=== PATIENT | male | born 1970 | race Caucasian/White ===

== ENCOUNTER 2022-05-03 18:28 | Outpatient (CLI) | payer SELFPAY | END 2022-05-03 18:29 | disposition home or self-care (01) | LOC: AMB 06-25 14:53 | PROVIDERS: Visit Provider Family Medicine | DX: R55 Syncope and collapse (principal) | CPT/HCPCS: A0425; A0427 ==

== ENCOUNTER 2022-05-03 19:12 | Emergency (ER) | payer SELFPAY ==
[2022-05-03] VITALS (13 sets, daily range): BP systolic 114–162; BP diastolic 67–102; PULSE 70–88; RESP 16; TEMP 36.8; O2SAT 97–100
--- NOTE | 2022-05-03 19:25 | CRLHL7_ITS ---
For Patients: As a result of the Century Cures Act, medical imaging exams and procedure reports are released immediately into your electronic medical record. You may view this report before your referring provider. If you have questions, please contact your health care provider. INDICATION: Syncope. TECHNIQUE: Chest 1 views. COMPARISON: None. FINDINGS: Cardiovasculature and mediastinum: Heart size and vasculature are normal in caliber and appearance. Lungs and pleural spaces: Lungs are clear. No sign of infiltrate or mass. No sign of pleural effusion. No pneumothorax. Bones and soft tissues: No significant findings. IMPRESSION: No acute or significant findings. Dictated by All Anthony MD @ 05/03/2022 8:17:22 PM (Electronically Signed)
--- NOTE | 2022-05-03 19:28 | ED_ITS ---
HPI - General Adult General Time Seen by Provider: 19:28 Date Seen: 05/03/22 Chief complaint: Syncope/Fainted Stated complaint: Syncopal episode Time Seen by Provider: 05/03/22 19:16 Source: patient Mode of arrival: EMS Limitations: no limitations History of Present Illness HPI narrative: Patient is a 51-year-old male who was picked up at the [employer] [place] stop. He was coming back from a friend's house from [place]. He was living near [place] in the past, he has been more recently homeless, living out of his truck, his truck has had break issues. He reports he was stopping a gas at the [employer], was trying to get water he had a syncopal episode against a pop machine, was revived by bystanders did not injure himself. He feels well now, except he st ates he is feeling ?dry? and has not eaten anything or drank much over the last week because he has had no access to food. Patient reports he is generally fairly healthy, denies home medications, has not seen a doctor recently. Specifically he denies chest pain, breathing difficulty, headache, neck pain, fevers chills or rigors, skin rashes, COVID symptoms. Related Data Home Medications Medication Instructions Recorded Confirmed No Known Home Medications 05/03/22 05/03/22 Allergies Allergy/AdvReac Type Severity Reaction Status Date / Time No Known Drug Allergies Allergy Verified 05/03/22 19:18 Review of Systems Status of ROS: Reports: 10 or more systems reviewed and unremarkable except as noted in History and below [facility] Medical History (Updated 05/03/22 @ 23:51 by Keith Appiah MD) No significant past medical history Surgical History (Updated 05/03/22 @ 19:47 by Alix Gusman RN) No significant past surgical history Social History Smoking Status: Current some day smoker What tobacco products do you use: cigarettes Do you use any of these nicotine containing products: None How often do you have a drink containing alcohol: never AUDIT-C Alcohol total score: 0 Non-prescribed substance use: denies use Exam Narrative: Exam Narrative: Objective: Patient has vital signs that are pretty unremarkable Is alert orient x3, appears fairly unkempt Very poor dentition, no facial asymmetry, no scleral icterus Neck is supple Chest clear Heart rate and rhythm regular 2/6 systolic murmur Abdomen benign soft Extremities are no edema neurologic nonfocal upper lower extremities Skin warm and dry in the periphery Mouth is very dry Const: Vital Signs, click to edit/add: Vital Signs - 24 hr 05/03/22 19:16 05/03/22 19:22 05/03/22 19:25 Temperature 98.2 F Pulse Rate [Left P ulse Oximeter] 83 Respiratory Rate 16 Blood Pressure [Le ft Upper Arm] 162/102 H 114/93 H Pulse Oximetry 99 99 Oxygen Delivery Me thod Room Air 05/03/22 19:30 05/03/22 19:50 05/03/22 20:15 Temperature Pulse Rate [Left P ulse Oximeter] 85 80 77 Respiratory Rate 16 16 16 Blood Pressure [Le ft Upper Arm] 120/81 127/94 H 137/87 Pulse Oximetry 99 99 99 Oxygen Delivery Me thod Room Air Room Air Room Air 05/03/22 20:30 Temperature Pulse Rate [Left P ulse Oximeter] 88 Respiratory Rate 16 Blood Pressure [Le ft Upper Arm] 125/88 Pulse Oximetry 99 Oxygen Delivery Me thod Room Air Course Vital Signs Vital signs: Initial Vital Signs Temperature 98.2 F 05/03/22 19:16 Temperature Source Temporal Artery Scan 05/03/22 19:16 Pulse Rate 83 05/03/22 19:16 Pulse Rhythm 05/03/22 19:16 Respiratory Rate 16 05/03/22 19:16 Blood Pressure 162/102 H 05/03/22 19:16 Blood Pressure Mean 122 05/03/22 19:16 Blood Pressure Position Sitting 05/03/22 19:16 Pulse Oximetry 99 05/03/22 19:16 Oxygen Delivery Method 05/03/22 19:16 Vital Signs Temperature 98.2 F 05/03/22 19:16 Pulse Rate 83 05/03/22 19:16 Respiratory Rate 16 05/03/22 19:16 Blood Pressure 162/102 H 05/03/22 19:16 Pulse Oximetry 99 05/03/22 19:16 Oxygen Delivery Method 05/03/22 19:16 Temperature 98.2 F 05/03/22 19:16 Pulse Rate 74 05/03/22 21:32 Respiratory Rate 16 05/03/22 20:30 Blood Pressure 100/64 05/04/22 00:01 Pulse Oximetry 98 05/04/22 00:01 Oxygen Delivery Method 05/03/22 20:30 Medical Decision Making MDM Narrative Medical decision making narrative: Patient has history of poor p.o. intake over the week, he appears dehydrated. Certainly this could have caused a vasovagal spell. He appears to be clinically well at this time. I do believe some checkups would be appropriate including a chest x-ray, a COVID test, electrolytes, CBC, urinalysis. Will hydrate him with a L of fluid will get him food his labs and other issues checked out well law enforcement to get him to a long-term other living arrangement. Please see add endum. Addendum: The patient's EKG by my read shows sinus rhythm PACs she got some interventricular conduction delay there is some artifact present, some T-wave inversion anteriorly I do not have an old EKG EKG for comparison. This is by my read. He is able to eat he has gotten IV fluid and a banana bag his chest x-ray looks unremarkable his D-dimer is negative COVID is negative troponin is 0.01 alcohol is negative lactate was 2.5 proBNP is 68 magnesium was low 1.4 I think giving him some magnesium IV would be appropriate. His potassium was low and also give him potassium bicarb 25 mEq orally his white count was 7970 and hemoglobin 19 is sodium was 134 glucose 121 alcohol is negative. Will repeat his EKG replenish his magnesium and potassium, rehydrate, long to eat. Recheck his EKG and troponin. Addendum: The patient's EKG by my read shows looks largely unchanged from prior, he does have some interventricular conduction delay, and some widened QRS he has not had any chest pain, neck pain, arm pain symptoms. His troponins are negative x2. I giving him IV magnesium and potassium for replacement. Will continue to monitor he he has eaten and been able to drink fluids. He is asymptomatic. Has a some EKG changes I do not have an old 1 for comparison, he will need followup as clinic patient, light activity recommended, aspirin daily, will I think for completeness recheck another troponin at 11:00 p.m. and EKG. Lab Data Labs: Lab Results 05/03/22 05/03/22 05/03/22 Range/Units 19:26 19:55 19:55 WBC 7.97 (4.50-11.00) K/uL RBC 6.36 H (4.30-5.90) m/uL Hgb 19.2 H (13.5-17.5) gm/dL Hct 53.5 H (37.0-53.0) % MCV 84 (80-100) fL MCH 30 (26-34) pg MCHC 36 (32-36) gm/dL RDW Coeff of Felecia 12.9 (11.5-15.5) % Plt Count 131 L (140-440) K/uL Neut % (Auto) 66.6 (42.0-72.0) % Lymph % (Auto) 23.8 (20-44) % [place] % (Auto) 7.4 (0.0-11.0) % Eos % (Auto) 1.3 (0.0-7.0) % Baso % (Auto) 0.3 (0.0-3.0) % Neut # (Auto) 5.31 (1.7-7.0) K/uL Lymph # (Auto) 1.90 (0.90-2.90) K/uL [place] # (Auto) 0.60 (0.00-0.90) K/UL Eos # (Auto) 0.10 (0.00-0.50) K/uL Baso # (Auto) 0.02 (0.00-0.30) K/uL Abs Immat Gran (auto) 0.05 (0.00-0.30) K/uL INR 1.11 H (0.91-1.10) APTT 30 (23-33) Seconds D-Dimer Quant (PE/DVT) 0.46 (0.00-0.50) ug/ml Sodium (135-149) mmol/L Potassium (3.6-5.1) mmol/L Chloride (96-114) mmol/L Carbon Dioxide (20-32) mmol/L BUN (7-30) mg/dL Creatinine (0.5-1.5) mg/dL Estimated GFR ml/min Glucose (60-115) mg/dL Lactate (0.5-1.9) mmol/L Calcium (8.4-10.6) mg/dL Magnesium (1.5-2.6) mg/dL Total Bilirubin (0.1-1.5) mg/dL Direct Bilirubin (0.0-0.5) mg/dL AST (12-35) U/L ALT (4-50) U/L Alkaline Phosphatase (40-150) U/L Troponin I (0.01-0.04) ng/mL NT-Pro-B Natriuret Pep (0-125) PG/mL Total Protein (6.0-8.3) g/dL Albumin (3.3-5.0) g/dL Ethyl Alcohol (0.01-0.03) % SARS-CoV-2 (PCR) Negative SARS-CoV-2 (Negative) 05/03/22 05/03/22 05/03/22 Range/Units 19:55 19:55 21:01 WBC (4.50-11.00) K/uL RBC (4.30-5.90) m/uL Hgb (13.5-17.5) gm/dL Hct (37.0-53.0) % MCV (80-100) fL MCH (26-34) pg MCHC (32-36) gm/dL RDW Coeff of Felecia (11.5-15.5) % Plt Count (140-440) K/uL Neut % (Auto) (42.0-72.0) % Lymph % (Auto) (20-44) % [place] % (Auto) (0.0-11.0) % Eos % (Auto) (0.0-7.0) % Baso % (Auto) (0.0-3.0) % Neut # (Auto) (1.7-7.0) K/uL Lymph # (Auto) (0.90-2.90) K/uL [place] # (Auto) (0.00-0.90) K/UL Eos # (Auto) (0.00-0.50) K/uL Baso # (Auto) (0.00-0.30) K/uL Abs Immat Gran (auto) (0.00-0.30) K/uL INR (0.91-1.10) APTT (23-33) Seconds D-Dimer Quant (PE/DVT) (0.00-0.50) ug/ml Sodium 134 L (135-149) mmol/L Potassium 3.1 L (3.6-5.1) mmol/L Chloride 94 L (96-114) mmol/L Carbon Dioxide 23 (20-32) mmol/L BUN 15 (7-30) mg/dL Creatinine 1.1 (0.5-1.5) mg/dL Estimated GFR 80 ml/min Glucose 121 H (60-115) mg/dL Lactate 2.5 H (0.5-1.9) mmol/L Calcium 9.9 (8.4-10.6) mg/dL Magnesium 1.4 L (1.5-2.6) mg/dL Total Bilirubin 1.3 (0.1-1.5) mg/dL Direct Bilirubin 0.5 (0.0-0.5) mg/dL AST 30 (12-35) U/L ALT 16 (4-50) U/L Alkaline Phosphatase 70 (40-150) U/L Troponin I 0.01 0.01 (0.01-0.04) ng/mL NT-Pro-B Natriuret Pep 68 (0-125) PG/mL Total Protein 8.1 (6.0-8.3) g/dL Albumin 4.7 (3.3-5.0) g/dL Ethyl Alcohol < 0.01 L (0.01-0.03) % SARS-CoV-2 (PCR) (Negative) 05/03/22 Range/Units 23:20 WBC (4.50-11.00) K/uL RBC (4.30-5.90) m/uL Hgb (13.5-17.5) gm/dL Hct (37.0-53.0) % MCV (80-100) fL MCH (26-34) pg MCHC (32-36) gm/dL RDW Coeff of Felecia (11.5-15.5) % Plt Count (140-440) K/uL Neut % (Auto) (42.0-72.0) % Lymph % (Auto) (20-44) % [place] % (Auto) (0.0-11.0) % Eos % (Auto) (0.0-7.0) % Baso % (Auto) (0.0-3.0) % Neut # (Auto) (1.7-7.0) K/uL Lymph # (Auto) (0.90-2.90) K/uL [place] # (Auto) (0.00-0.90) K/UL Eos # (Auto) (0.00-0.50) K/uL Baso # (Auto) (0.00-0.30) K/uL Abs Immat Gran (auto) (0.00-0.30) K/uL INR (0.91-1.10) APTT (23-33) Seconds D-Dimer Quant (PE/DVT) (0.00-0.50) ug/ml Sodium (135-149) mmol/L Potassium (3.6-5.1) mmol/L Chloride (96-114) mmol/L Carbon Dioxide (20-32) mmol/L BUN (7-30) mg/dL Creatinine (0.5-1.5) mg/dL Estimated GFR ml/min Glucose (60-115) mg/dL Lactate (0.5-1.9) mmol/L Calcium (8.4-10.6) mg/dL Magnesium (1.5-2.6) mg/dL Total Bilirubin (0.1-1.5) mg/dL Direct Bilirubin (0.0-0.5) mg/dL AST (12-35) U/L ALT (4-50) U/L Alkaline Phosphatase (40-150) U/L Troponin I 0.02 (0.01-0.04) ng/mL NT-Pro-B Natriuret Pep (0-125) PG/mL Total Protein (6.0-8.3) g/dL Albumin (3.3-5.0) g/dL Ethyl Alcohol (0.01-0.03) % SARS-CoV-2 (PCR) (Negative) Discharge Plan Discharge Clinical Impression: Vasovagal syncope, Dehydration Patient Disposition: Home w/ Parent or Adult Condition: Improved Additional Instructions: Rest, light activity, fluids on a regular basis, recheck with her regular physician within the next 2-3 days. Return as needed, recommend aspirin daily Activity Level: Light activity Discharge Diet: Regular Prescriptions: No Action No Known Home Medications Follow Up/Referrals: Provider,Not a Local [Primary Care Provider] - Stand Alone Forms: [facility] Info Instructions
[2022-05-03] MEDS: 0.9 % SODIUM CHLORIDE 1000 ml 1,000 ML 6000 ML IV (19:40)
[2022-05-03 19:59] LABS: Lactate* 2.5 mmol/L (0.5-1.9)
[2022-05-03 20:17] LABS: Albumin* 4.7 g/dL (3.3-5.0); Chloride* 94 mmol/L (96-114); Potassium* 3.1 mmol/L (3.6-5.1); Sodium* 134 mmol/L (135-149)
[2022-05-03 20:18] LABS: Carbon Dioxide* 23 mmol/L (20-32); Creatinine* 1.1 mg/dL (0.5-1.5); Estimated Glomerular Filt Rate 80 ml/min
[2022-05-03 20:19] LABS: Alanine Aminotransferase* 16 U/L (4-50); Alkaline Phosphatase* 70 U/L (40-150); Bilirubin Direct* 0.5 mg/dL (0.0-0.5); Bilirubin Total* 1.3 mg/dL (0.1-1.5); Blood Urea Nitrogen* 15 mg/dL (7-30); Calcium* 9.9 mg/dL (8.4-10.6); Glucose* 121 mg/dL (60-115); Total Protein* 8.1 g/dL (6.0-8.3)
[2022-05-03 20:24] LABS: Ethanol* < 0.01 % (0.01-0.03)
[2022-05-03 20:25] LABS: INR 1.11 (0.91-1.10); Prothrombin Time 14.8 Seconds
[2022-05-03 20:27] LABS: NT Pro B Type NatriureticPept* 68 PG/mL (0-125)
[2022-05-03 20:30] LABS: Basophils Absolute Auto 0.02 K/uL (0.00-0.30); Basophils Percent Auto 0.3 % (0.0-3.0); Eosinophils Percent Auto 1.3 % (0.0-7.0); Hematocrit 53.5 % (37.0-53.0); Hemoglobin* 19.2 gm/dL (13.5-17.5); Immature Granulocytes Abs Auto 0.05 K/uL (0.00-0.30); Lymphocytes Percent Auto 23.8 % (20-44); Mean Corpuscular HGB Conc 36 gm/dL (32-36); Mean Corpuscular Hemoglobin 30 pg (26-34); Mean Corpuscular Volume 84 fL (80-100); Monocytes Percent Auto 7.4 % (0.0-11.0); Neutrophils Absolute Auto 5.31 K/uL (1.7-7.0); Neutrophils Percent Auto 66.6 % (42.0-72.0); Platelet Count* 131 K/uL (140-440); RDW Coefficient of Variation % 12.9 % (11.5-15.5); Red Blood Count 6.36 m/uL (4.30-5.90); Troponin I* 0.01 ng/mL (0.01-0.04); White Blood Count* 7.97 K/uL (4.50-11.00)
[2022-05-03 20:32] LABS: Slide Review Reflex No
[2022-05-03 20:34] LABS: D Dimer Quantitative* 0.46 ug/ml (0.00-0.50); Partial Thromboplastin Time* 30 Seconds (23-33)
[2022-05-03 20:36] LABS: Aspartate Amino Transferase* 30 U/L (12-35); Magnesium* 1.4 mg/dL (1.5-2.6)
[2022-05-03 20:38] LABS: SARS PCR* Negative SARS-CoV-2 (Negative)
[2022-05-03] MEDS: POTASSIUM BICARB 25 MEQ EFFERVESCENT TAB PO (20:50)
[2022-05-03] MEDS: MAGNESIUM SULFATE 2 GM/50 ML PIGGYBACK IVPB (21:20)
[2022-05-03 21:48] LABS: Troponin I* 0.01 ng/mL (0.01-0.04)
[2022-05-04 00:01] VITALS: BP 100/64; O2SAT 98
[2022-05-04 00:02] LABS: Troponin I* 0.02 ng/mL (0.01-0.04)
--- NOTE | 2022-05-04 00:23 | ED.NURSE ---
pt iv removed, tip intact. pt resting in bed to await SS consult in the AM. denies any concerns at this time.
--- NOTE | 2022-05-04 00:37 | ED.NURSE ---
MD Verbal medically cleared and no need to continue medical monitoring.
== END 2022-05-04 07:28 | disposition home or self-care (01) ==
PROVIDERS: Emergency Provider Family Medicine
DX: R55 Syncope and collapse (principal); E86.0 Dehydration
CPT/HCPCS: 36415; 71045; 80048; 80076; 81001; 82077; 83605; 83735; 83880; 84484; 85025; 85379; 85610; 85730; 87086; 87635; 93005; 94761; 96365; 99285; A9270; J3411; J3475; J7030